=== PATIENT | female | born 1975 | race Caucasian/White ===

== ENCOUNTER 2024-02-21 10:37 | Inpatient (IN) | payer OTHER, SELFPAY ==
[2024-02-17 10:52] VITALS: BMI 20.3
[2024-02-19] VITALS (14 sets, daily range): BP systolic 100–124; BP diastolic 45–71; PULSE 50–100; RESP 10–18; TEMP 35.8–37.1; O2SAT 96–100; BMI 20.3
--- NOTE | 2024-02-19 | PATH_ITS ---
[facility] Accession Number: [id number] No. of containers..01 Tissue . 01 Material submitted: . uterus - CERVIX,UTERUS,BILATERAL FALLOPIAN TUBES . 01 Diagnosis: CERVIX, UTERUS, AND BILATERAL FALLOPIAN TUBES, HYSTERECTOMY AND BILATERAL SALPINGECTOMY: Cervix with mild chronic inflammation; no dysplasia or malignancy. Scant superficial nonproliferative endometrium with pseudodecidualized stroma, suggstive of hormone effect; no endometrioid intraepithelial neoplasia and no malignancy. Leiomyomata. Complete cross section of bilateral fimbriated fallopian tube identified without any significant pathologic alterations. [facility] 02/24/2024 1324 Local . 01 Electronically signed: . Mana Cuevas MD, Pathologist NPI- [id number] . 01 Gross description: . Received in formalin, labeled with two patient identifiers and cervix, uterus, bilateral fallopian tubes. Received is a 13.5 x 12.5 x 5.0 cm, 465 g, aggregate of fragmented uterus with an identified detached cervix and two free-floating, detached, fimbriated fallopian tubes. The cervix measures 3.5 x 3.0 x 1.5 cm and has a smooth, white, glistening ectocervix. There is a 0.4 cm slit-like patulous os which is euceda, trabeculated, and free of exophytic lesions. The uterus is severely disrupted with some fragments of tissue having a white to euceda, smooth, glistening serosal surface. The myometrial wall has multiple white, whorled, well-circumscribed, and fragmented nodules ranging from 1.5 x 1.0 x 0.8 cm up to 7.5 x 6.5 x 5.5 cm. These nodules replace approximately 80% of the myometrium, and further sectioning shows no evidence of cystic changes or necrosis. Some fragmented endometrium is identified and is red-euceda, finely granular, and measures up to 0.2 cm in thickness. Also received in the same container are two free-floating, fimbriated fallopian tubes which average 4.0 cm in length and up to 0.5 cm in diameter. Both are sectioned to show to have a stellate lumen which average 0.4 cm. The fallopian tubes are arbitrarily differentially inked, and inbound customer service representative sections are submitted in: Cassettes A1 and A2: Cervix. Cassettes A3 and A4: Endomyometrium. Cassette A5: Four random sections from largest myometrial nodule. Cassettes A6 and A7: Senior Project Engineer sections from fragmented myometrial nodules (four pieces in each cassette). Cassette A8: Inked black fimbriated fallopian tube fimbriae entirely submitted. Cross sections. Cassette A9: Arbitrarily inked blue fimbriated fallopian tube fimbriated end entirely submitted in two complete cross sections. ([id number]) /R 02/24/2024 1324 Local . 01 Pathologist provided ICD-10: D25.9, N92.0 . 01 CPT . 257388 Specimen Comment: A courtesy copy of this report has been sent to [phone] Performed at: [address] [facility], [place], [place] [id number] MD Fer Caruso MD Phone: [phone]
[2024-02-19] MEDS: SCOPOLAMINE 1 PATCH TOP (07:30)
--- NOTE | 2024-02-19 08:53 | PM.PREOP ---
Pre-operative Note COVID-19 COVID-19 status: Not tested Interval Note History & Physical reviewed/Exam performed by Physician: Yes Changes to H&P: No
[2024-02-19] MEDS: CEFAZOLIN 2 GM/100 ML PREMIX 100 ML IV (09:35)
[2024-02-19] MEDS: BUPIVACAINE 0.5% W/ EPI (PF) 10 ML VIAL 30 ML INJ (10:23)
[2024-02-19] MEDS: LACTATED RINGERS 1,000 ML 42 ML IV (10:33)
[2024-02-19] MEDS: ROPIVACAINE 0.2% PF 2 MG/ML 10ML AMP 20 ML INJ (11:21)
--- NOTE | 2024-02-19 11:54 | P.OP_ITS ---
Operative Date/Time/Diagnoses Date of procedure: 02/19/24 Time of procedure: 09:00 Pre-op diagnosis: Menorrhagia Uterine fibroid IUD in place Post-op diagnosis: same Procedure & Clinicians Procedure: Procedures Operation Date: 02/19/24 09:00 Actual Procedure Side Surgeon p Total Laparoscopic Hysterectomy with Bilateral Salpingectomy Dillon Nguyen MD Indications: Vamshi is a 48-year-old nulligravida, LMP starting earlier today, who presents for evaluation menorrhagia associated with an enlarging uterine fibroid. Patient experienced menarche at age 16 and has had regular predictable periods which were light up until about 2 years ago when she started having progressively heavier periods. while her periods remain regular, her menstrual flow lengthened and became markedly heavier associated with the clots, overflows, and accidents during both daytime and at night. An ultrasound at that time showed that she had a uterine fibroid and her primary care provider placed a Mirena IUD about a year ago which markedly reduced her menstrual flow. That said, she started her 1st menstrual period in several months earlier today therefore endometrial sampling isn't possible at today's visit. The patient has had abnormal Paps in the past and had been diagnosed with HPV in 2014. She underwent colposcopy but did not require treatment. Her most recent Pap smear was in September 2023 and was negative for both cytology and HPV testing. Additional recent testing includes colonoscopy which showed only a tortuous colon but no abnormalities. 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 That pelvic ultrasound showed her uterus to be 11.8 x 9.4 x 9.3 cm and was previously 10.5 x 8.0 x 0.2 cm on a study that was performed 11/15/2022. a large anterior intramural fibroid is again seen measuring 7.8 x 7.5 x 7.6 cm which is enlarged from the previous study where it measured 6.6 x 6.5 x 5.3 cm. Areas of internal shadowing within the fibroid limits assessment slightly. The endometrium is partially obscured and measures up to 5 mm were visualized without focal mass or thickening. An IUD appears to be in appropriate position within the endometrium. Right ovary measures 3.2 x 1.6 x 2.1 cm with the left ovary measuring 2.0 x 1.3 x 2.0 cm and the ovaries are described as unremarkable in appearance. Review of systems is notable for urinary frequency with small voided volumes, abdominal bloating with difficulty passing BMs , and a sense of pelvic pressure with recent onset of deep dyspareunia. Patient is not interested in future childbearing but instead is interested ending in exploring hysterectomy as an option for treating her menorrhagia as well as the symptoms associated with her enlarging fibroid. Endometrial biopsy to be performed today. After consideration of all options regarding management of her symptoms, patient has opted to proceed with total laparoscopic hysterectomy and bilateral salpingectomy with preservation of ovaries. She presents today for her scheduled surgery. Surgeon: Dillon Nguyen Political Anthropologist: Phoebe Yao Anesthesia Type: General Operative Notes Findings: Uterus is enlarged proximally 12 contains solitary fibroid. Fallopian tubes appeared normal. Both ovaries also appeared. Abnormalities, adhesions, endometriotic implants in either the anterior or posterior cul-de-sac. The appendix as visualized laparoscopically appears normal. The liver edge and gallbladder also appear normal to laparoscopic inspection. Closure Type: primary Specimen(s): left tube, right tube and uterus Applied: catheter Estimated blood loss (mL): 75 Blood products transfused: none Procedure in detail: With the patient in modified dorsal lithotomy position preparations were made by prepping and draping the patient in usual manner for vaginal surgery and insertion of Cobb catheter. A pre-surgical time-out was then taken in accordance with [facility] policy. A bivalve speculum was then placed in the vagina and the cervix visualized. The anterior lip of the cervix was then grasped with a single-tooth tenaculum. The uterus was sounded to 8 cm, the endocervical canal dilated slightly, and a VCare uterine manipulator with a medium colpotomy cup was placed. The umbilicus was then infiltrated with 0.5% Marcaine with epinephrine. A 1 cm umbilical incision was made transversely and a Veress needle was used to insufflate the abdominal cavity with carbon dioxide. Once the abdomen was appropriately insufflated, a 5 mm trocar and sleeve were then placed through the umbilical incision. The scope was placed through the trocar and the initial assessment of the intra-abdominal contents carried out. A 2nd and 3rd 5 mm port was then placed 1st in the right mid quadrant from then the left mid quadrant by infiltration of the skin and subcutaneous tissues, a 1 cm transverse incision and insertion of the 5 mm bladeless port. Using a 3 puncture technique, the abdomen and pelvis were inspected laparoscopy and photographically documented. Uterus is mobilized with the VCare manipulator and attention turned to the left adnexa. The distal tube was then grasped and the fimbria varicose divided after coagulation with the PowerSeal device. The dissection was then carried out toward the cornua and the fallopian tube amputated. The tube was removed through a 5 mm port and dissection was then carried down using the PowerSeal device so as to divide the utero-ovarian ligament and the round ligament with blunt and sharp dissection of the broad down to the level of the uterine artery. The uterine artery was then skeletonized after development of a bladder flap, coagulated, and divided. Once hemostasis was assured on the left side attention was turned to the right and the tube, utero-ovarian ligament, round ligament, and broad ligament were dissected in a fashion exactly the same as it had been on the left. The right uterine artery was then visualized after skeletonization and coagulated and divided. The uterus was seen to mundo after coagulation of both your arteries and the cup was identified through the vaginal muscularis at its insertion with the body of the cervix. Circumferential excision of the vaginal cup was accomplished without difficulty using monopolar current and the uterus mobilized. The uterus was then removed through the vagina and the vaginal cuff closed [id number] with a series of 0 Vicryl [id number] stitches. Hemostasis was excellent, the abdomen was re-insufflated, and the pelvis inspected laparoscopically. The pelvis was inspected for any abnormality or bleeding, and the ureters were each seen to be peristalsing freely. With complete hemostasis assured, the pneumoperitoneum was vented and the ports removed. All of the 5 mm ports were then closed with 4-0 Monocryl on the skin using inverted interrupted sutures. Skin glue was placed and after the glue was dried, an appropriate dressing was applied. The case was then terminated, the patient awakened, and then transferred to PACU after having tolerated the procedure well. Complications: none Post-operative Condition: stable Disposition: PACU Plan for aftercare: Recovery in ambulatory surgery in discharge home later today if pain is under control and she is tolerating oral intake well.
[2024-02-19] MEDS: hydrOXYzine 50 MG/ML INJ IM (12:08)
[2024-02-19] MEDS: ONDANSETRON 4 MG/2 ML INJ IV ×5 (12:08→22:17)
[2024-02-19] MEDS: METOCLOPRAMIDE 10 MG/2 ML INJ IV ×2 (12:09→16:04)
[2024-02-19] MEDS: LACTATED RINGERS 1,000 ML 100 ML IV (13:47)
[2024-02-19] MEDS: KETOROLAC 30 MG/ML VIAL IV ×2 (13:52→18:51)
[2024-02-19] MEDS: ACETAMINOPHEN IV 1,000 MG/100 ML VIAL 400 MG IV (17:06)
[2024-02-19] MEDS: PROMETHAZINE 12.5 MG SUPP PR (18:57)
[2024-02-20] MEDS: ONDANSETRON 4 MG/2 ML INJ IV ×4 (01:09→12:00)
[2024-02-20] MEDS: KETOROLAC 30 MG/ML VIAL IV ×2 (01:09→09:24)
[2024-02-20 01:14] VITALS: BP 91/37; PULSE 67; RESP 16; TEMP 36.3; O2SAT 99
--- NOTE | 2024-02-20 01:22 | PC.NURSE ---
VS checked around 01:00. BP 91/37, HR 67, MAP 52. Notified Dr. Nguyen and received order for NS 500 cc bolus, stated that her blood pressure normally runs low and as long as her heart rate is up he is not concerned.
[2024-02-20] MEDS: SODIUM CHLORIDE 0.9% 500 ML 1000 ML IV (01:53)
[2024-02-20] MEDS: LACTATED RINGERS 1,000 ML 100 ML IV (02:24)
[2024-02-20 05:29] VITALS: BP 110/62; PULSE 63; RESP 18; TEMP 36.4; O2SAT 96
[2024-02-20 06:18] LABS: Add Manual Diff / Slide Review NO; Basophils Absolute Auto 0 /uL (0-100); Basophils Percent Auto 0.1 % (0-2); Eosinophils Absolute Auto 0 /uL (0-450); Eosinophils Percent Auto 0.1 % (2-4); Hemoglobin 9.8 g/dL (12.0-16.0); Lymphocytes Absolute Auto 1500 /uL (1100-4500); Lymphocytes Percent Auto 11.7 % (25-40); Mean Corpuscular HGB Conc 33.9 % (30-36); Mean Corpuscular Volume 91.4 fL (80-100); Monocytes Absolute Auto 800 /uL (0-900); Monocytes Percent Auto 6.2 % (3-14); Neutrophils Absolute Auto 10600 /uL (1500-7000); Neutrophils Percent Auto 81.9 % (50-75); Platelet Count 183 X10^3/uL (150-400); Red Blood Cell Count 3.18 X10^6/uL (4.0-5.2); Red Cell Distribution Width 13.5 % (11.6-14.8); White Blood Cell Count 12.9 X10^3/uL (4.5-11.0)
[2024-02-20 08:00] VITALS: BP 88/37; PULSE 60; RESP 17; TEMP 36.6; O2SAT 96
--- NOTE | 2024-02-20 08:56 | PM.DS.1 ---
History of Present Illness History of Present Illness Date Patient Seen: 02/20/24 Time Patient Seen: 08:56 Chief complaint: Menorrhagia, uterine fibroid, IUD in place Narrative: Vamshi is a 48-year-old nulligravida, LMP starting earlier today, who presents for evaluation menorrhagia associated with an enlarging uterine fibroid. Patient experienced menarche at age 16 and has had regular predictable periods which were light up until about 2 years ago when she started having progressively heavier periods. while her periods remain regular, her menstrual flow lengthened and became markedly heavier associated with the clots, overflows, and accidents during both daytime and at night. An ultrasound at that time showed that she had a uterine fibroid and her primary care provider placed a Mirena IUD about a year ago which markedly reduced her menstrual flow. That said, she started her 1st menstrual period in several months earlier today therefore endometrial sampling isn't possible at today's visit. The patient has had abnormal Paps in the past and had been diagnosed with HPV in 2014. She underwent colposcopy but did not require treatment. Her most recent Pap smear was in September 2023 and was negative for both cytology and HPV testing. Additional recent testing includes colonoscopy which showed only a tortuous colon but no abnormalities. 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 That pelvic ultrasound showed her uterus to be 11.8 x 9.4 x 9.3 cm and was previously 10.5 x 8.0 x 0.2 cm on a study that was performed 11/15/2022. a large anterior intramural fibroid is again seen measuring 7.8 x 7.5 x 7.6 cm which is enlarged from the previous study where it measured 6.6 x 6.5 x 5.3 cm. Areas of internal shadowing within the fibroid limits assessment slightly. The endometrium is partially obscured and measures up to 5 mm were visualized without focal mass or thickening. An IUD appears to be in appropriate position within the endometrium. Right ovary measures 3.2 x 1.6 x 2.1 cm with the left ovary measuring 2.0 x 1.3 x 2.0 cm and the ovaries are described as unremarkable in appearance. Review of systems is notable for urinary frequency with small voided volumes, abdominal bloating with difficulty passing BMs , and a sense of pelvic pressure with recent onset of deep dyspareunia. Patient is not interested in future childbearing but instead is interested ending in exploring hysterectomy as an option for treating her menorrhagia as well as the symptoms associated with her enlarging fibroid. Endometrial biopsy to be performed today. After consideration of all options regarding management of her symptoms, patient has opted to proceed with total laparoscopic hysterectomy and bilateral salpingectomy with preservation of ovaries. She presents for her scheduled surgery. Discharge Providers Provider Date of admission: 02/19/2024 Discharge Date: 02/20/24 Primary care physician: Epifanio Liu Discharge provider: Dillon Nguyen MD Summary Hospital Course Discharge Diagnosis: Intractable menorrhagia Uterine fibroid IUD in place Status-post total laparoscopic hysterectomy with bilateral salpingectomy and removal of Mirena IUD Hospital Course: Vamshi was admitted on 02/19/2024 and on the morning of 02/19/2024 underwent an uneventful total laparoscopic hysterectomy with bilateral salpingectomy and removal of Mirena IUD. Full details of the procedure well summarized on my operative note of that date. Following delivery the patient has done well aside from significant nausea and vomiting which is typical for her following anesthesia. She is now able to tolerate a regular diet, she is ambulating independently, and her pain is well controlled with oral pain medications. She will be discharged at this time to home in an afebrile condition after counseling regarding precautionary symptoms, limitations of activity, medications, and plans for follow-up which will be in 2 weeks. Medications at discharge will include resumption of preadmission medications and she will use [id number] Tylenol/ibuprofen as needed for pain relief. In addition to was prescribed Zofran 8 mg tablets to be used every 8 hours as needed for persistent nausea and vomiting. Status at Discharge Cognitive/behavioral status at discharge: oriented Functional status at discharge: independent ambulation Overall status at discharge: patient is progressing back to baseline Time Spent with Patient Time spent: Less than 30 minutes Exam Vital Signs (past 8 hours): - 02/20/24 01:14 02/20/24 05:29 02/20/24 08:00 Temperature 97.4 F L 97.5 F L 97.9 F Pulse Rate 67 63 60 Respiratory Rate 16 18 17 Blood Pressure 91/37 L 110/62 88/37 L Pulse Oximetry 99 96 96 Oxygen Flow Rate 0 0 0 Oxygen Delivery Method Room Air Oxygen Flow Rate 0 Const General: cooperative and comfortable Nutritional Appearance: average body habitus Orientation: alert and oriented x3 HENMT Head: normal to inspection, atraumatic and abrasion Ears: hearing grossly normal bilaterally Face and sinus: face symmetric Eyes General: appearance normal, both eyes and all related structures Conjunctivae: conjunctivae normal Sclera: sclerae normal EOM: EOM intact bilaterally Neck Neck: normal visual inspection Resp Effort & Inspection: normal respiratory effort and able to speak in complete sentences Auscultation: clear to auscultation bilaterally Cardio Rate: regular rate Rhythm: regular rhythm Heart Sounds: S1 normal, S2 normal and no murmurs GI Inspection: normal to inspection and incision (Surgical dressings clean and dry) Palpation: soft, no hepatosplenomegaly and tender (Mild, diffuse postsurgical tenderness) External Female Exam: other (No significant bleeding noted) Extrem General: no calf tenderness Psych Appearance: grossly normal Mental Status: mental status grossly normal Speech and Movement: speech and movement normal Mood: congruent mood Affect: normal affect Attitude: cooperative Thought Process: normal Thought Content: normal Judgment: judgment good Objective Labs 02/20/24 05:55 Labs: Laboratory Results - last 24 hr 02/20/24 05:55 WBC 12.9 H RBC 3.18 L Hgb 9.8 L Hct 29.0 L MCV 91.4 MCH 31.0 MCHC 33.9 RDW 13.5 Plt Count 183 Neut % (Auto) 81.9 H Lymph % (Auto) 11.7 L Holt % (Auto) 6.2 Eos % (Auto) 0.1 L Baso % (Auto) 0.1 Neut # (Auto) 94679 H Lymph # (Auto) 1500 Holt # (Auto) 800 Eos # (Auto) 0 Baso # (Auto) 0 PFSH Medical History (Updated 02/09/24 @ 20:34 by Kim Noel) Acne (~2021) Headache Human papilloma virus Abnormal Pap smear of cervix (~2014) Constipation Bloating Hemorrhoid (~2015) Uterine fibroid (~2021) Menorrhagia Surgical History (Updated 02/09/24 @ 20:34 by Kim Noel) Anesthesia History of colonoscopy (~2023) Family History (Updated 02/09/24 @ 20:39 by Kim Noel) Father Dementia Polymyalgia rheumatica Mental health problem Depression Mother Melanoma CVA (cerebral vascular accident) Atrial fibrillation Grandfather Tuberculosis Grandmother Congestive heart failure Lung disease Grandfather Mental health problem Social History household members: significant other and children Smoking Status: Never smoker alcohol intake: current Discharge Assessment & Plan Assessment and Plan Assessment: Intractable menorrhagia Uterine fibroid IUD in place Status-post total laparoscopic hysterectomy with bilateral salpingectomy and removal of Mirena IUD Plan of Treatment: Routine postoperative care with follow-up planned for 2 weeks postop Discharge Plan Discharge Plan Patient Disposition: Home Provider Discharge Comment: Please review the written instructions you received when you were discharged from the hospital. Your follow-up appointment is scheduled for 2 weeks after your surgery and I look forward to seeing you then. If however in the meanwhile you have any issues, concerns, or questions, please contact me either through the office phone at [phone], or via the patient portal. Discharge orders & Medications Discharge Orders: Discharge (Order); Ordered 02/20/24 Ordered By: Dillon Nguyen Prescriptions: New ondansetron HCl 8 mg tablet 8 mg PO Q8H PRN (Reason: nausea and vomiting) Qty: 10 0RF Continued venlafaxine 75 mg capsule,extended release 24hr 75 mg PO DAILY All Day Allergy (cetirizine) 10 mg capsule 10 mg PO DAILY PRN Follow up/Referrals: Epifanio Liu [Primary Care Provider] - Dillon Nguyen MD [Physician] - Diet/Activity/Treatments Diet: Diet as Tolerated Activity: As tolerated Other treatments: Bbwx-xbd-gzvibbg Tylenol and/or ibuprofen may be used for additional pain relief. Yunm-hmh-lstygyf stool softeners and/or MiraLax may be used as needed for constipation. Skin/Wound/Dressing Care Report to your healthcare provider any signs of infection, such as:: chills, fever, increased pain, unusual drainage and unusual redness Dressing: Dressings should be removed on the morning of 02/21/2024 Visit Report/Discharge Packet Instructions: DI for Hysterectomy, DI for Laparoscopy Stand Alone Forms: Surgery Discharge Print Language: Namibian Discharge Data Primary Care Provider: Epifanio Liu Attending Provider: Dillon Nguyen VTE Deep Vein Thrombosis/Pulmonary Embolism Present on Admission: No
[2024-02-20] MEDS: METOCLOPRAMIDE 10 MG/2 ML INJ IV ×3 (10:10→21:39)
--- NOTE | 2024-02-20 10:35 | CM.DANOTE ---
DCP Assessment Note: Pt is a 48yo female, resident of [place], is s/p total laproscopic hysterectomy. Pt lives in a house with her significant other and children. Pt's Primary Care Provider is Dr. Epifanio Liu and insurance is [employer] and self pay. Reviewed chart and team rounds for pt's medical status and initial discharge needs. DCP met w/patient at bedside; introduced self and role. Pt was found in bed, alert and oriented, cooperative with assessment. Pt confirmed preference in returning home as soon as possible. Per RHEA Guo, pt was given authorization by Dr. Nguyen to obtain a preferential loading pass. DCP completed online form for preferential loading for ferry to Friday, added pt's email and printed a copy for pt's reference, sent to RN. Plan: Pt to discharge home with brother to transport, with preferential boarding pass for Friday ferry. CM following if any other dc needs arise. LATANYA Hardy Discharge Planning/Care Management CM Discharge Assessment Start: 02/20/24 10:33 Freq: Status: Active Protocol: Document 02/20/24 10:33 MW (Rec: 02/20/24 10:35 MW [id number]) Discharge Planning Assessment Assigned Die Maker Apprentice ORTEGA Culp DPOA/Assigned Designee Name Brother Hare Contact Information [phone] Advance Directives? No History Provided By Patient,Medical Record Has Patient been admitted in last 30 No days? Prior Living Arrangements House Household Members significant other,children Type of transporation used prior to Drives own vehicle admit [place] with ADL's Yes Is patient alert and oriented? Yes Discharge Plan Home Transportation Arrangement Brother to transport home, pt requesting preferential loading for ferry to Friday. Dr. Nguyen approved. Whiteboard Updated in Patient Room with Yes name and ext. # of Die Maker Apprentice Please Provide Date Initial DC 02/20/24 Assessment Was Performed Next Review Type Continued Stay Review
[2024-02-20] MEDS: PROMETHAZINE 12.5 MG SUPP PR (10:39)
[2024-02-20] MEDS: ACETAMINOPHEN 325 MG TABLET 650 MG PO (11:14)
[2024-02-20] MEDS: TRAMADOL 50 MG TABLET 100 MG PO ×2 (11:14→16:19)
[2024-02-20 12:00] VITALS: BP 93/32; PULSE 68; RESP 19; TEMP 36.4; O2SAT 97
--- NOTE | 2024-02-20 12:56 | DI.CT.S_ITS ---
PROCEDURE: CT ABDOMEN PELVIS W CON INDICATIONS: Post hysterectomy 02/19/2024 with pelvic/abdominal pain TECHNIQUE: After the administration of intravenous contrast, axial sections acquired from the lung bases to the pubic symphysis. Coronal and sagittal reformats were performed. For radiation dose reduction, the following was used: automated exposure control, adjustment of mA and/or kV according to patient size. COMPARISON: None. FINDINGS: Image quality: Diagnostic. Lower Chest: No significant findings. ABDOMEN: Liver: No solid mass. Periportal edema is present. Gallbladder: No radiopaque gallstones or wall thickening. Biliary ducts: No biliary dilation. Pancreas: No ductal dilation. Spleen: Size is within normal limits. Adrenal Glands: No adrenal nodules. Kidneys and Ureters: Mild left hydroureteronephrosis with a delayed left nephrogram. The distal ureters not visualized secondary to surrounding fluid. Right kidney is normal in appearance without hydronephrosis. Stomach and Bowel: Wall thickening of the transverse and descending colon is noted. Few prominent loops of small bowel within the mid abdomen with air-fluid levels, may represent an ileus. Peritoneum: Small to moderate volume free fluid throughout the abdomen. Small pneumoperitoneum, likely postsurgical in etiology. Diffuse mesenteric edema. Ventral Wall: No significant ventral hernia. Abdominal Nodes: No retroperitoneal or mesenteric adenopathy by size criteria. Vessels: Aorta and inferior vena cava are normal in size. PELVIS: Pelvic Organs: Postsurgical changes from recent hysterectomy.. Bladder: Urinary bladder wall appears thickened. Small focus of gas within the urinary bladder, correlate with recent instrumentation. Pelvic Nodes: No enlarged lymph nodes. Miscellaneous: No inguinal hernias are seen. Bones: No aggressive osseous abnormality. Degenerative changes of the lower lumbar spine. IMPRESSION: 1. Status post hysterectomy. Small to moderate volume free fluid within the abdomen and pelvis of uncertain etiology. Mild pneumoperitoneum, likely postsurgical in etiology. 2. Mild left hydroureteronephrosis with a delayed left nephrogram. The distal ureter is not visualized secondary to surrounding fluid and inflammation. Recommend correlation with urinalysis for pyelonephritis. 3. Wall thickening of the urinary bladder, correlate with urinalysis. Small focus of gas within the urinary bladder, likely secondary to recent instrumentation. 4. Wall thickening of the transverse and descending colon is noted, may represent colitis or be reactive from surrounding fluid. 5. Few prominent loops of small bowel within the mid abdomen with air-fluid levels, may represent ileus. No definite transition point is seen. Dictated by: Jim Cornejo M.D. on 02/20/2024 at 14:05 Approved by: Jim Cornejo M.D. on 02/20/2024 at 14:12
--- NOTE | 2024-02-20 13:56 | PM.PN.1 ---
Subjective Subjective Date Patient Seen: 02/20/24 Time Patient Seen: 13:20 Interval history: Shortly after being seen and cleared for discharge, patient got up and empty her bladder at which point she had severe pelvic cramping which has continued and is persistent. Discharge postponed/canceled and will evaluate with abdominopelvic CT with contrast and urinalysis by catheterization. Exam Vital Signs (past 8 hours): - 02/20/24 08:00 Temperature 97.9 F Pulse Rate 60 Respiratory Rate 17 Blood Pressure 88/37 L Pulse Oximetry 96 Oxygen Flow Rate 0 Oxygen Delivery Method Room Air Oxygen Flow Rate 0 Const General: cooperative and in distress (Due to pelvic/abdominal pain) Nutritional Appearance: average body habitus Orientation: alert and oriented x3 HENMT Head: normal to inspection, normocephalic and atraumatic Ears: hearing grossly normal bilaterally Face and sinus: face symmetric Eyes General: appearance normal, both eyes and all related structures Conjunctivae: conjunctivae normal Sclera: sclerae normal EOM: EOM intact bilaterally Neck Neck: normal visual inspection Resp Effort & Inspection: normal respiratory effort and able to speak in complete sentences GI Inspection: normal to inspection Palpation: soft, no hepatosplenomegaly and tender (Diffuse lower abdominal tenderness, mild) Percussion: no fluid wave Auscultation: hypoactive bowel sounds External Female Exam: other (No significant vaginal bleeding) Psych Appearance: grossly normal Mental Status: mental status grossly normal Speech and Movement: speech and movement normal Mood: congruent mood Affect: normal affect Attitude: cooperative Thought Process: normal Thought Content: normal Judgment: judgment good Objective Labs 02/20/24 05:55 Labs: Laboratory Results - last 24 hr 02/20/24 05:55 WBC 12.9 H RBC 3.18 L Hgb 9.8 L Hct 29.0 L MCV 91.4 MCH 31.0 MCHC 33.9 RDW 13.5 Plt Count 183 Neut % (Auto) 81.9 H Lymph % (Auto) 11.7 L [place] % (Auto) 6.2 Eos % (Auto) 0.1 L Baso % (Auto) 0.1 Neut # (Auto) 09738 H Lymph # (Auto) 1500 [place] # (Auto) 800 Eos # (Auto) 0 Baso # (Auto) 0 PFSH Medical History (Updated 02/09/24 @ 20:34 by Kim Noel) Acne (~2021) Headache Human papilloma virus Abnormal Pap smear of cervix (~2014) Constipation Bloating Hemorrhoid (~2015) Uterine fibroid (~2021) Menorrhagia Surgical History (Updated 02/09/24 @ 20:34 by Kim Noel) Anesthesia History of colonoscopy (~2023) Family History (Updated 02/09/24 @ 20:39 by Kim Noel) Father Dementia Polymyalgia rheumatica Mental health problem Depression Mother Melanoma CVA (cerebral vascular accident) Atrial fibrillation Grandfather Tuberculosis Grandmother Congestive heart failure Lung disease Grandfather Mental health problem Social History household members: significant other and children Smoking Status: Never smoker alcohol intake: current Assessment & Plan Assessment & Plan narrative: ASSESSMENT: Post hysterectomy abdominal pelvic pain of uncertain origin PLAN: Stat abdominal/pelvic CT with contrast and cath UA Strict NPO status Further evaluation/treatment will be based on those findings Discussed plan with patient and her family Quality VTE Deep Vein Thrombosis/Pulmonary Embolism Present on Admission: No
[2024-02-20 14:50] LABS: Appearance Urine UA SL CLOUDY; Bilirubin Urine UA NEGATIVE (NEGATIVE); Color Urine UA YELLOW; Glucose Urine UA NEGATIVE (Negative); Ketones Urine UA NEGATIVE (NEGATIVE); Leukocyte Esterase Urine UA 1+ (NEGATIVE); Nitrite Urine UA NEGATIVE (Negative); Occult Blood Urine UA 3+ (Negative); Protein Urine UA 3+ (Negative); Specific Gravity Urine UA 1.015 (1.000-1.035); Urobilinogen Urine UA 0.2 E.U./dL (0.2)
[2024-02-20 14:58] LABS: Bacteria Urine Few (2-10); Culture Indicated Urine Specimen Cultured; RBC Urine 30-100/HPF (0-5/HPF); Squamous Epithelial Cell Urine 1-5 /HPF (0-5/HPF); Urine Volume 10mL (spun); WBC Urine 30-100/HPF (0-5/HPF)
[2024-02-20 15:36] LABS: Estimated Glomerular Filt Rate 56 mL/min (>60)
[2024-02-20 16:10] VITALS: BP 89/32; PULSE 60; RESP 17; TEMP 36.4; O2SAT 96
[2024-02-20] MEDS: CIPROFLOXACIN 400 MG/200 ML PIGGYBACK 200 MG IV (16:19)
[2024-02-20] MEDS: PHENAZOPYRIDINE 100 MG TABLET 200 MG PO ×2 (16:19→21:11)
--- NOTE | 2024-02-20 17:24 | PM.PN.1 ---
Subjective Subjective Date Patient Seen: 02/20/24 Time Patient Seen: 17:24 Interval history: Vamshi continues to have significant abdominal pain with movement and attempted ambulation. Primary discomfort however is mid to upper abdomen, episodic, wave-like, crampy pain which is only relieved with some position changes. Abdominal/pelvic CT shows small to moderate amount of fluid in the abdomen/pelvis and air-fluid levels in the small intestine. In discussions with the patient, she was struggling with constipation preoperatively and has not had a normal bowel movement in a few days. Exam Vital Signs (past 8 hours): - 02/20/24 12:00 02/20/24 16:10 Temperature 97.5 F L 97.5 F L Pulse Rate 68 60 Respiratory Rate 19 17 Blood Pressure 93/32 L 89/32 L Pulse Oximetry 97 96 Oxygen Flow Rate 0 0 Oxygen Delivery Method Room Air Oxygen Flow Rate 0 Const General: cooperative and in distress (Due to abdominal pain) Nutritional Appearance: average body habitus Orientation: alert and oriented x3 HENMT Head: normal to inspection, atraumatic and abrasion Ears: hearing grossly normal bilaterally Face and sinus: face symmetric Eyes General: appearance normal, both eyes and all related structures Conjunctivae: conjunctivae normal Sclera: sclerae normal EOM: EOM intact bilaterally Neck Neck: normal visual inspection Resp Effort & Inspection: normal respiratory effort and able to speak in complete sentences Auscultation: clear to auscultation bilaterally Cardio Rate: regular rate Rhythm: regular rhythm Heart Sounds: S1 normal, S2 normal and no murmurs GI Inspection: normal to inspection, non-distended and incision (Surgical dressings clean and dry) Palpation: soft, no hepatosplenomegaly and tender (Mild, diffuse postsurgical tenderness) Auscultation: hypoactive bowel sounds External Female Exam: other (No significant bleeding noted) Extrem General: no calf tenderness Psych Appearance: grossly normal Mental Status: mental status grossly normal Speech and Movement: speech and movement normal Mood: congruent mood Affect: normal affect Attitude: cooperative Thought Process: normal Thought Content: normal Judgment: judgment good Objective Imaging CT ABD/PELVIS: Radiologist's impression: FINDINGS: Image quality: Diagnostic. Lower Chest: No significant findings. ABDOMEN: Liver: No solid mass. Periportal edema is present. Gallbladder: No radiopaque gallstones or wall thickening. Biliary ducts: No biliary dilation. Pancreas: No ductal dilation. Spleen: Size is within normal limits. Adrenal Glands: No adrenal nodules. Kidneys and Ureters: Mild left hydroureteronephrosis with a delayed left nephrogram. The distal ureters not visualized secondary to surrounding fluid. Right kidney is normal in appearance without hydronephrosis. Stomach and Bowel: Wall thickening of the transverse and descending colon is noted. Few prominent loops of small bowel within the mid abdomen with air-fluid levels, may represent an ileus. Peritoneum: Small to moderate volume free fluid throughout the abdomen. Small pneumoperitoneum, likely postsurgical in etiology. Diffuse mesenteric edema. Ventral Wall: No significant ventral hernia. Abdominal Nodes: No retroperitoneal or mesenteric adenopathy by size criteria. Vessels: Aorta and inferior vena cava are normal in size. PELVIS: Pelvic Organs: Postsurgical changes from recent hysterectomy.. Bladder: Urinary bladder wall appears thickened. Small focus of gas within the urinary bladder, correlate with recent instrumentation. Pelvic Nodes: No enlarged lymph nodes. Miscellaneous: No inguinal hernias are seen. Bones: No aggressive osseous abnormality. Degenerative changes of the lower lumbar spine. IMPRESSION: 1. Status post hysterectomy. Small to moderate volume free fluid within the abdomen and pelvis of uncertain etiology. Mild pneumoperitoneum, likely postsurgical in etiology. 2. Mild left hydroureteronephrosis with a delayed left nephrogram. The distal ureter is not visualized secondary to surrounding fluid and inflammation. Recommend correlation with urinalysis for pyelonephritis. 3. Wall thickening of the urinary bladder, correlate with urinalysis. Small focus of gas within the urinary bladder, likely secondary to recent instrumentation. 4. Wall thickening of the transverse and descending colon is noted, may represent colitis or be reactive from surrounding fluid. 5. Few prominent loops of small bowel within the mid abdomen with air-fluid levels, may represent ileus. No definite transition point is seen. Labs 02/21/24 05:35 02/21/24 05:35 Labs: Laboratory Results - last 24 hr 02/20/24 02/20/24 02/20/24 03:55 05:55 13:40 WBC 12.9 H RBC 3.18 L Hgb 9.8 L Hct 29.0 L MCV 91.4 MCH 31.0 MCHC 33.9 RDW 13.5 Plt Count 183 Neut % (Auto) 81.9 H Lymph % (Auto) 11.7 L [place] % (Auto) 6.2 Eos % (Auto) 0.1 L Baso % (Auto) 0.1 Neut # (Auto) 61156 H Lymph # (Auto) 1500 [place] # (Auto) 800 Eos # (Auto) 0 Baso # (Auto) 0 Creatinine 1.21 H Estimated GFR 56 L Urine Color Yellow Urine Appearance Sl cloudy Urine pH 6.0 Ur Specific [place] 1.015 Urine Protein 3+ H Urine Glucose (UA) Negative Urine Ketones Negative Urine Occult Blood 3+ H Urine Nitrate Negative Urine Bilirubin Negative Urine Urobilinogen 0.2 Ur Leukocyte Esterase 1+ H Urine RBC 30-100/hpf H Urine WBC 30-100/hpf H Ur Squamous Epith Cells 1-5 /hpf Urine Bacteria Few (2-10) H Ur Culture Indicated? Specimen cultured Vol Urine Centrifuged 10ml (spun) [facility] Medical History (Updated 02/21/24 @ 08:15 by Dillon Nguyen MD) Acne (~2021) Headache Human papilloma virus Abnormal Pap smear of cervix (~2014) Constipation Bloating Hemorrhoid (~2015) Uterine fibroid (~2021) Menorrhagia Surgical History (Updated 02/21/24 @ 08:15 by Dillon Nguyen MD) Anesthesia History of colonoscopy (~2023) Family History (Updated 02/09/24 @ 20:39 by Kim Noel) Father Dementia Polymyalgia rheumatica Mental health problem Depression Mother Melanoma CVA (cerebral vascular accident) Atrial fibrillation Grandfather Tuberculosis Grandmother Congestive heart failure Lung disease Grandfather Mental health problem Social History household members: significant other and children Smoking Status: Never smoker alcohol intake: current Assessment & Plan Assessment and plan (1) Postoperative ileus: Status: Acute (2) Postoperative generalized abdominal pain: Status: Acute (3) History of hysterectomy for benign disease: Status: Acute Plan Will attempt to relieve pre-existing constipation as a potential contributor to post op ileus and evaluate for response overnight. Will also discontinue Zofran and instead rely on Reglan as her primary antiemetic. Assessment & Plan narrative: Will initiate enemas an attempt to relieve preoperative constipation may be contributing to postop ileus. Further decisions regarding evaluation/treatment will be based on her response. Time Spent With Patient Time with patient: less than 30 minutes Quality VTE Deep Vein Thrombosis/Pulmonary Embolism Present on Admission: No
[2024-02-20] MEDS: DEXTROSE 5%-0.45NS W/KCL 20MEQ 1,000 ML 150 MEQ IV (18:16)
[2024-02-20] MEDS: FLEETS ENEMA 2 EACH PR ×2 (18:17→21:25)
[2024-02-20] MEDS: HYDROMORPHONE 0.5 MG INJ IV ×2 (18:35→21:10)
--- NOTE | 2024-02-20 19:33 | PC.NURSE ---
Patient's BP decreased today 80's /30's. MD aware, and patient asymptomatic of low BP. She states she takes Effexor to help with low BP but is trying to wean off of it. Per MD continue to monitor. No new orders for hypotension.
[2024-02-20 21:10] VITALS: BP 107/47; PULSE 61; RESP 16; TEMP 36.2; O2SAT 97
[2024-02-21 00:36] VITALS: BP 105/51; PULSE 65; RESP 16; TEMP 36.8; O2SAT 93
[2024-02-21] MEDS: ACETAMINOPHEN 325 MG TABLET 650 MG PO ×3 (00:54→13:45)
[2024-02-21] MEDS: DEXTROSE 5%-0.45NS W/KCL 20MEQ 1,000 ML 150 MEQ IV (01:49)
[2024-02-21] MEDS: HYDROMORPHONE 0.5 MG INJ IV ×2 (01:51→09:10)
[2024-02-21] MEDS: CIPROFLOXACIN 400 MG/200 ML PIGGYBACK 200 MG IV ×2 (03:01→15:40)
[2024-02-21] MEDS: METOCLOPRAMIDE 10 MG/2 ML INJ IV (04:14)
[2024-02-21 04:27] VITALS: BP 108/59; PULSE 70; RESP 16; TEMP 36; O2SAT 96
[2024-02-21 06:32] LABS: Add Manual Diff / Slide Review NO; Basophils Absolute Auto 0 /uL (0-100); Basophils Percent Auto 0.1 % (0-2); Eosinophils Absolute Auto 0 /uL (0-450); Eosinophils Percent Auto 0.3 % (2-4); Hematocrit 29.9 % (36-46); Hemoglobin 10.3 g/dL (12.0-16.0); Lymphocytes Absolute Auto 1100 /uL (1100-4500); Mean Corpuscular HGB Conc 34.6 % (30-36); Mean Corpuscular Hemoglobin 31.7 PG (26-34); Mean Corpuscular Volume 91.5 fL (80-100); Monocytes Absolute Auto 600 /uL (0-900); Monocytes Percent Auto 5.8 % (3-14); Neutrophils Absolute Auto 8100 /uL (1500-7000); Neutrophils Percent Auto 82.8 % (50-75); Platelet Count 182 X10^3/uL (150-400); Red Blood Cell Count 3.27 X10^6/uL (4.0-5.2); Red Cell Distribution Width 13.3 % (11.6-14.8); White Blood Cell Count 9.8 X10^3/uL (4.5-11.0)
[2024-02-21] MEDS: TRAMADOL 50 MG TABLET 100 MG PO (06:36)
--- NOTE | 2024-02-21 06:43 | PC.NURSE ---
Patient c/o cramping and achy abdominal pain well controlled with analgesics. Reglan given for c/o intermittent nausea with relief, no emesis. Per report from day RN, patient had a moderate sized BM after 1st enema. This RN gave 2nd enema with results of a very small hard BM. BT active on left side, hypoactive on Right side.
[2024-02-21 06:44] LABS: BUN Creatinine Ratio 9.7 (6-22); Blood Urea Nitrogen 31 mg/dL (7-17); Calcium 7.7 mg/dL (8.4-10.2); Carbon Dioxide 23 mmol/L (22-32); Chloride 106 mmol/L (98-107); Estimated Glomerular Filt Rate 17 mL/min (>60); Glucose 120 mg/dL (70-100); HEMOLYSIS < 15 (0-50); Potassium 4.3 mmol/L (3.4-5.1); Sodium 134 mmol/L (137-145)
--- NOTE | 2024-02-21 08:20 | P.PN_ITS ---
Subjective Subjective Date Patient Seen: 02/21/24 Time Patient Seen: 08:21 Interval history: Vamshi is not significantly improved overnight despite the fact that she did have some results from her enemas. Her nausea is somewhat improved but the crampy abdominal pain continues unabated. Aside from the results of her enemas, she has not passed gas. She has no significant vaginal bleeding. She is able to void spontaneously without undue discomfort but getting to the bathroom is extremely uncomfortable for her. She remains NPO status. WBC has returned to the normal range, H&H remains stable, patient afebrile, blood pressure normal, non tachycardic. Urine culture pending. Exam Vital Signs (past 8 hours): - 02/21/24 00:36 02/21/24 04:27 Temperature 98.2 F 96.8 F L Pulse Rate 65 70 Respiratory Rate 16 16 Blood Pressure 105/51 L 108/59 L Pulse Oximetry 93 96 Oxygen Delivery Method Room Air Oxygen Flow Rate 0 Const General: cooperative and in distress (Due to abddominal pain) Nutritional Appearance: average body habitus Orientation: alert and oriented x3 HENMT Head: normal to inspection, atraumatic and abrasion Ears: hearing grossly normal bilaterally Face and sinus: face symmetric Eyes General: appearance normal, both eyes and all related structures Conjunctivae: conjunctivae normal Sclera: sclerae normal EOM: EOM intact bilaterally Neck Neck: normal visual inspection Resp Effort & Inspection: normal respiratory effort and able to speak in complete sentences Auscultation: clear to auscultation bilaterally Cardio Rate: regular rate Rhythm: regular rhythm Heart Sounds: S1 normal, S2 normal and no murmurs GI Inspection: distended and incision (Surgical dressings clean and dry) Palpation: soft, no hepatosplenomegaly and tender (Mild, periumbilical postsurgical tenderness, LLQ rebound) Auscultation: hypoactive bowel sounds External Female Exam: other (No significant bleeding noted) Extrem General: no calf tenderness Psych Appearance: grossly normal Mental Status: mental status grossly normal Speech and Movement: speech and movement normal Mood: congruent mood Affect: normal affect Attitude: cooperative Thought Process: normal Thought Content: normal Judgment: judgment good Objective Labs 02/21/24 05:35 02/21/24 05:35 Labs: Laboratory Results - last 24 hr 02/20/24 02/20/24 02/21/24 03:55 13:40 05:35 WBC 9.8 RBC 3.27 L Hgb 10.3 L Hct 29.9 L MCV 91.5 MCH 31.7 MCHC 34.6 RDW 13.3 Plt Count 182 Neut % (Auto) 82.8 H Lymph % (Auto) 11.0 L [place] % (Auto) 5.8 Eos % (Auto) 0.3 L Baso % (Auto) 0.1 Neut # (Auto) 8100 H Lymph # (Auto) 1100 [place] # (Auto) 600 Eos # (Auto) 0 Baso # (Auto) 0 Sodium 134 L Potassium 4.3 Chloride 106 Carbon Dioxide 23 BUN 31 H Creatinine 1.21 H 3.19 H Estimated GFR 56 L 17 L BUN/Creatinine Ratio 9.7 Glucose 120 H Calcium 7.7 L Urine Color Yellow Urine Appearance Sl cloudy Urine pH 6.0 Ur Specific [place] 1.015 Urine Protein 3+ H Urine Glucose (UA) Negative Urine Ketones Negative Urine Occult Blood 3+ H Urine Nitrate Negative Urine Bilirubin Negative Urine Urobilinogen 0.2 Ur Leukocyte Esterase 1+ H Urine RBC 30-100/hpf H Urine WBC 30-100/hpf H Ur Squamous Epith Cells 1-5 /hpf Urine Bacteria Few (2-10) H Ur Culture Indicated? Specimen cultured Vol Urine Centrifuged 10ml (spun) REPLACED BY [facility] Medical History (Updated 02/21/24 @ 08:15 by Dillon Nguyen MD) Acne (~2021) Headache Human papilloma virus Abnormal Pap smear of cervix (~2014) Constipation Bloating Hemorrhoid (~2015) Uterine fibroid (~2021) Menorrhagia Surgical History (Updated 02/21/24 @ 08:15 by Dillon Nguyen MD) Anesthesia History of colonoscopy (~2023) Family History (Updated 02/09/24 @ 20:39 by Kim Noel) Father Dementia Polymyalgia rheumatica Mental health problem Depression Mother Melanoma CVA (cerebral vascular accident) Atrial fibrillation Grandfather Tuberculosis Grandmother Congestive heart failure Lung disease Grandfather Mental health problem Social History household members: significant other and children Smoking Status: Never smoker alcohol intake: current Assessment & Plan Assessment and plan (1) History of hysterectomy for benign disease: Status: Acute (2) Postoperative generalized abdominal pain: Status: Acute (3) Postoperative ileus: Status: Acute Plan Acute abdomen series Pelvic/abdominal ultrasound Further decisions regarding evaluation/treatment will be based on those results. Possible surgery consult or re-exploration to rule out bowel injury or possible bladder injury Time Spent With Patient Time with patient: less than 30 minutes Quality VTE Deep Vein Thrombosis/Pulmonary Embolism Present on Admission: No
--- NOTE | 2024-02-21 08:27 | DI.RAD.S_ITS ---
PROCEDURE: XR ACUTE ABDOMEN SERIES INDICATIONS: Post-op ileus/abdominal pain TECHNIQUE: One view chest and two views of the abdomen were acquired. COMPARISON: None. FINDINGS: Surgical changes and devices: None. Chest: Lungs are clear. Heart size is normal. No pleural effusions. No pneumoperitoneum. Abdomen: Bowel gas pattern is nonobstructive. No suspicious calcifications. Visualized solid organ contours appear normal. Retained contrast is seen in the left kidney and bladder. Bones: No suspicious bony lesions. IMPRESSION: Nonobstructive bowel gas pattern. Retained contrast in the left kidney and bladder. Approved by: Ivonne Mcknight M.D.,Ph.D. on 02/21/2024 at 9:14
--- NOTE | 2024-02-21 11:51 | PM.PN.1 ---
Subjective Subjective Date Patient Seen: 02/21/24 Time Patient Seen: 11:52 Interval history: Case reviewed with Dr. La Amos urology who agrees that patient needs surgical exploration and full or assessment of the nature of urologic injury. Persistent contrast in left ureter and bladder noted on AAS performed earlier today along with persistent nonobstructive ileus. Exam Vital Signs (past 8 hours): - 02/21/24 04:27 Temperature 96.8 F L Pulse Rate 70 Respiratory Rate 16 Blood Pressure 108/59 L Pulse Oximetry 96 Oxygen Delivery Method Room Air Oxygen Flow Rate 0 Objective Labs 02/21/24 05:35 02/21/24 05:35 Labs: Laboratory Results - last 24 hr 02/20/24 02/20/24 02/21/24 03:55 13:40 05:35 WBC 9.8 RBC 3.27 L Hgb 10.3 L Hct 29.9 L MCV 91.5 MCH 31.7 MCHC 34.6 RDW 13.3 Plt Count 182 Neut % (Auto) 82.8 H Lymph % (Auto) 11.0 L [place] % (Auto) 5.8 Eos % (Auto) 0.3 L Baso % (Auto) 0.1 Neut # (Auto) 8100 H Lymph # (Auto) 1100 [place] # (Auto) 600 Eos # (Auto) 0 Baso # (Auto) 0 Sodium 134 L Potassium 4.3 Chloride 106 Carbon Dioxide 23 BUN 31 H Creatinine 1.21 H 3.19 H Estimated GFR 56 L 17 L BUN/Creatinine Ratio 9.7 Glucose 120 H Calcium 7.7 L Urine Color Yellow Urine Appearance Sl cloudy Urine pH 6.0 Ur Specific [place] 1.015 Urine Protein 3+ H Urine Glucose (UA) Negative Urine Ketones Negative Urine Occult Blood 3+ H Urine Nitrate Negative Urine Bilirubin Negative Urine Urobilinogen 0.2 Ur Leukocyte Esterase 1+ H Urine RBC 30-100/hpf H Urine WBC 30-100/hpf H Ur Squamous Epith Cells 1-5 /hpf Urine Bacteria Few (2-10) H Ur Culture Indicated? Specimen cultured Vol Urine Centrifuged 10ml (spun) [facility] Medical History (Updated 02/21/24 @ 11:56 by Dillon Nguyen MD) Acne (~2021) Headache Human papilloma virus Abnormal Pap smear of cervix (~2014) Constipation Bloating Hemorrhoid (~2015) Uterine fibroid (~2021) Menorrhagia Surgical History (Updated 02/21/24 @ 08:15 by Dillon Nguyen MD) Anesthesia History of colonoscopy (~2023) Family History (Updated 02/09/24 @ 20:39 by Kim Noel) Father Dementia Polymyalgia rheumatica Mental health problem Depression Mother Melanoma CVA (cerebral vascular accident) Atrial fibrillation Grandfather Tuberculosis Grandmother Congestive heart failure Lung disease Grandfather Mental health problem Social History household members: significant other and children Smoking Status: Never smoker alcohol intake: current Assessment & Plan Assessment and plan (1) Intraoperative injury of bladder: Problem details: Injury to left ureter cannot be excluded Status: Acute (2) History of hysterectomy for benign disease: Status: Acute (3) Postoperative generalized abdominal pain: Status: Acute (4) Postoperative ileus: Status: Acute Plan Due to non-availability urology services here at [facility] this weekend, will need to transfer for the patient to the [facility] for urological management of this operative complication. Case reviewed with Dr. La Amos, Urology who accepts the patient in transfer. Will complete coordination with transfer center so that corrective urologic surgery can be performed later today. Patient and her family are fully aware of the surgical complication and need for urgent surgical treatment which is not available here at [facility] due to non-availability of [facility] Urology this weekend. Time Spent With Patient Time with patient: 50 to 69 minutes with 50% spent counseling/coordinating care Quality VTE Deep Vein Thrombosis/Pulmonary Embolism Present on Admission: No
--- NOTE | 2024-02-21 14:41 | CM.DPC ---
DCP Transfer Per OBGYN, complications post surgery with likely nicked bladder and pt accepted for hospital transfer for higher level of care needs of further surgery. police magistrate setting up transport when bed available. ORTEGA De Luna
--- NOTE | 2024-02-21 18:23 | PC.NURSE ---
Late Entry 1615 - 10mg IV Reglan administered per [facility]
== END 2024-02-21 16:20 | disposition short-term general hospital (02) | DRG 742 ==
LOC: OR 02-23 08:09 → AC 02-23 08:10
PROVIDERS: Admitting Provider Obstetrics & Gynecology; PCP Student in an Organized Health Care Education/Training Program; Referring Provider Obstetrics & Gynecology; Visit Provider Obstetrics & Gynecology
PROC: 0UT94ZZ Resection of Uterus, Percutaneous Endoscopic Approach (ICD-10-PCS; principal; 2024-02-19 09:00)
DX: D25.1 Intramural leiomyoma of uterus (principal); K56.7 Ileus, unspecified; K91.89 Other postprocedural complications and disorders of digestive system; N92.0 Excessive and frequent menstruation with regular cycle; G89.18 Other acute postprocedural pain; R10.84 Generalized abdominal pain; N99.81 Other intraoperative complications of genitourinary system
CPT/HCPCS: 36415; 74022; 74177; 80048; 81001; 82565; 85025; 87086; J0136; J0330; J0690; J0744; J1100; J1170; J1885; J2250; J2405; J2704; J2765; J2795; J3010; J3410; J3490; Q9967